=== PATIENT | male | born 1935 | race Hispanic/Latino ===

== ENCOUNTER 2016-12-30 14:10 | Observation (INO) | payer MEDICARE, BC ==
[2016-12-30] MEDS ORDERED: Nitroglycerin 2% Ointment Foilpak UD TOP STA (14:36)
[2016-12-30 14:38] LABS: BASO # 0.02 K/mm3 (0.0-2.0); BASO % 0.3 % (0.0-3.0); EOS # 0.1 (0.0-0.7); EOS % 1.8 % (1.5-5.0); GRAN # 5.16 (1.4-6.5); GRAN % 66.5 % (50.0-68.0); HEMATOCRIT 37.3 % (42.0-52.0); LYMPH % 26.1 % (22.0-35.0); MEAN CELL VOLUME 85.7 fl (80.0-105.0); MEAN CORPUSCULAR HEMOGLOBIN 29.4 pg (25.0-35.0); MEAN CORPUSCULAR HGB CONC 34.3 g/dl (31.0-37.0); MEAN PLATELET VOLUME 10.5 fl (7.0-11.0); MONO # 0.4 (0.1-0.6); MONO % 5.3 % (1.0-6.0); RED CELL DISTRIBUTION WIDTH 14.1 % (11.5-14.5); WHITE BLOOD COUNT 7.8 10^3/ul (4.5-11.0)
--- NOTE | 2016-12-30 14:41 | ED PDOC ---
Arrival/HPI - General Chief Complaint: Chest Pain Time Seen by Provider: 12/30/16 14:23 Historian: Patient, Spouse, Family - History of Present Illness Narrative History of Present Illness (Text): 12/30/16 14:35 A 81 year old male, whose past medical history includes diabetes, hypertension, 10 cardiac stents (last one placed 1 year ago) on Aspirin and Plavix and ulcer on Protonix, presents to the emergency department complaining of intermittent chest pains since yesterday. Patient describes the pain as a stabbing sensation. Patient notes mild acid reflux but denies any fever, nausea, vomiting , abdominal pain, urinary symptoms, hematochezia, shortness of breath, cough or any other complaints. PMD: Non-[facility] provider, located in [place] Professor Of Economics: Dr. Larson 12/30/16 17:10 Time/Duration: Other (Yesterday) Symptom Course: Unchanged, Intermittent Quality: Other Context: Home Past Medical History - Provider Review Nursing Documentation Reviewed: Yes - Infectious Disease Hx of Infectious Diseases: None - Cardiac Hx Hypertension: Yes Other/Comment: cardiac stent x10 - Endocrine/Metabolic Hx Diabetes Mellitus Type 2: Yes - Psychiatric Hx Substance Use: No - Anesthesia Hx Anesthesia: No Family/Social History - Physician Review Nursing Documentation Reviewed: Yes Family/Social History: No Known Family HX Smoking Status: Unknown If Ever Smoked Hx Alcohol Use: No Hx Substance Use: No Allergies/Home Meds Allergies/Adverse Reactions: Allergies acetaminophen [From Vicodin] Allergy (Verified 12/30/16 21:01) RASH hydrocodone [From Vicodin] Allergy (Verified 12/30/16 21:01) RASH Penicillins Allergy (Verified 12/30/16 21:01) RASH prochlorperazine [From Compazine] Allergy (Verified 12/30/16 21:01) RASH clarithromycin [From Biaxin] Adverse Reaction (Verified 12/30/16 21:01) VOMITING levofloxacin [From Levaquin] Adverse Reaction (Verified 12/30/16 21:01) PAIN lidocaine Adverse Reaction (Verified 12/30/16 21:01) SHORTNESS OF BREATH Home Medications: Home Meds Medication Instructions Recorded Confirmed Clopidogrel [Plavix] 75 mg PO DAILY 12/30/16 12/30/16 Glimepiride [amaRYL] 2 mg PO DAILY 12/30/16 12/30/16 Losartan [Cozaar] 100 mg PO DAILY 12/30/16 12/30/16 Pantoprazole Sodium [Protonix] 40 mg PO DAILY 12/30/16 12/30/16 Ranolazine [Ranexa] 250 mg PO BID 12/30/16 12/30/16 Rosuvastatin Calcium [Crestor] 5 mg PO DAILY 12/30/16 12/30/16 SITagliptin [Januvia] 50 mg PO DAILY 12/30/16 12/30/16 amLODIPine [Norvasc] 1 tab PO ONCE 12/30/16 12/30/16 Review of Systems - Physician Review All systems were reviewed & negative as marked: Yes - Review of Systems Constitutional: absent: Fevers Respiratory: absent: SOB, Cough Cardiovascular: Chest Pain Gastrointestinal: absent: Abdominal Pain, Nausea, Vomiting, Hematochezia Genitourinary Male: absent: Dysuria, Frequency, Hematuria Physical Exam Vital Signs Reviewed: Yes Vital Signs Temp Pulse Resp BP Pulse Ox 12/30/16 18:51 50 L 18 152/74 H 96 12/30/16 17:38 98.5 F 49 L 18 143/73 96 12/30/16 16:34 48 L 18 159/65 H 98 12/30/16 15:06 98.5 F 62 17 140/64 98 12/30/16 14:17 98.4 F 54 L 18 141/93 H 98 Temperature: Afebrile Blood Pressure: Hypertensive Pulse: Bradycardic Respiratory Rate: Normal Appearance: Positive for: Well-Appearing, Non-Toxic, Comfortable Pain Distress: None Mental Status: Positive for: Alert and Oriented X 3 - Systems Exam Head: Present: Atraumatic, Normocephalic Pupils: Present: PERRL Extroacular Muscles: Present: EOMI Conjunctiva: Present: Normal Mouth: Present: Moist Mucous Membranes Neck: Present: Normal Range of Motion Respiratory/Chest: Present: Clear to Auscultation, Good Air Exchange. No: Respiratory Distress, Accessory Muscle Use Cardiovascular: Present: Regular Rate and Rhythm, Normal S1, S2. No: Murmurs Abdomen: Present: Normal Bowel Sounds. No: Tenderness, Distention, Peritoneal Signs Back: Present: Normal Inspection Upper Extremity: Present: Normal Inspection. No: Cyanosis, Edema Lower Extremity: Present: Normal Inspection. No: Edema Neurological: Present: GCS=15, CN II-XII Intact, Speech Normal Skin: Present: Warm, Dry, Normal Color. No: Rashes Psychiatric: Present: Alert, Oriented x 3, Normal Insight, Normal Concentration Medical Decision Making ED Course and Treatment: 12/30/16 14:35 Impression: A 81 year old male with chest pain. Patient denies any other complaints. Plan: -- Chest xray -- EKG -- Labs -- Urinalysis -- Aspirin and Nitroglycerin -- Reassess and disposition Progress Notes: EKG shows sinus bradycardia at 59 BPM with LAD, no ST changes, nonspecific t- wave inversions in AVL, normal intervals, QRS 91ms and DC <200ms. Interpreted by me. 12/30/16 16:55 Have been attempting to page Dr. Larson, without success. Report Date : 12/30/2016 16:57:21 Procedure: Chest xray Dictator : Sergio Low MD IMPRESSION: Prominent cardiac silhouette. No definite acute infiltrate or pleural effusion bilaterally. 12/30/16 17:[address] Larson, states he will evaluate patient at bedside. 12/31/16 21:26 advises admission. 12/31/16 21:27 - Lab Interpretations Lab Results: 12/30/16 14:25 12/30/16 14:50 Lab Results 12/30/16 16:35: Urine Color Light yellow, Urine Appearance Clear, Urine pH 6.0, Ur Specific [place] 1.015, Urine Protein Negative, Urine Glucose (UA) Negative, Urine Ketones Negative, Urine Blood Negative, Urine Nitrate Negative, Urine Bilirubin Negative, Urine Urobilinogen 0.2, Ur Leukocyte Esterase Negative 12/30/16 14:50: Sodium 141, Potassium 4.3, Chloride 101, Carbon Dioxide 28, Anion Gap 16, BUN 29 H, Creatinine 1.6 H, Est GFR ( Amer) 51, Est GFR ( Non-Af Amer) 42, Random Glucose 172 H, Calcium 9.4, Magnesium 1.9, Total Bilirubin 0.5, AST 24, ALT 24, Alkaline Phosphatase 75, Lactate Dehydrogenase 365, Total Creatine Kinase 42, Troponin I < 0.01, Total Protein 6.9, Albumin 4.2 , Globulin 2.7, Albumin/Globulin Ratio 1.6 12/30/16 14:25: PT 11.2, INR 1.04, APTT 25.3, D-Dimer, Quantitative 0.46 12/30/16 14:25: WBC 7.8, RBC 4.35, Hgb 12.8 L, Hct 37.3 L, MCV 85.7, MCH 29.4, MCHC 34.3, RDW 14.1, Plt Count 241, MPV 10.5, Gran % 66.5, Lymph % (Auto) 26.1, Simpson % (Auto) 5.3, Eos % (Auto) 1.8, Baso % (Auto) 0.3, Gran # 5.16, Lymph # 2.0 , Simpson # 0.4, Eos # 0.1, Baso # 0.02 I have reviewed the lab results: Yes - RAD Interpretation Radiology Orders: 12/30/16 14:23 CHEST TWO VIEWS (PA/LAT) [RAD] Stat - Medication Orders Current Medication Orders: Acetylcysteine (Acetylcysteine 20%) 3 ml PO BID [facility] Stop: 01/02/17 10:01 Last Admin: 12/31/16 17:28 Dose: 3 ml Aspirin (Aspirin Chewable) 81 mg PO DAILY [facility] Last Admin: 12/31/16 09:47 Dose: Atorvastatin Calcium (Lipitor) 40 mg PO DIN [facility] Last Admin: 12/31/16 17:27 Dose: 40 mg Glimepiride (Amaryl) 2 mg PO DAILY [facility] Last Admin: 12/31/16 09:59 Dose: 2 mg Hydralazine HCl (Apresoline) 10 mg PO TID [facility] Last Admin: 12/31/16 17:27 Dose: 10 mg MAR Pulse and Blood Pressure Document 12/31/16 17:27 KMS (Rec: 12/31/16 17:28 [email or web address] Pulse Pulse Rate (60-90) 68 Blood Pressure Blood Pressure (100/60-150/90) 131/65 Iron Sucrose 200 mg/ Sodium (Chloride) 110 mls @ 110 mls/hr IVPB DAILY [facility] Stop: 01/02/17 10:59 Last Admin: 12/31/16 15:09 Dose: 110 mls/hr eMAR Start Stop Document 12/31/16 15:09 KMS (Rec: 12/31/16 15:10 [email or web address] Intravenous Solution Start Date 12/31/16 Start Time 15:10 End Date 12/31/16 End time 16:10 Total Infusion Time 60 Sodium Chloride (Sodium Chloride 0.9%) 1,000 mls @ 75 mls/hr IV .[id number] [facility] Stop: 01/01/17 23:59 Last Admin: 12/31/16 15:07 Dose: 75 mls/hr eMAR Start Stop Document 12/31/16 15:07 KMS (Rec: 12/31/16 15:08 KMS [id number]) Intravenous Solution Start Date 12/31/16 Start Time 15:07 Isosorbide Mononitrate (Imdur) 60 mg PO DAILY [facility] Last Admin: 12/31/16 10:06 Dose: Not Given Non-Admin Reason: BP Parameters Not Met Comments: bp 116/41, HR 44 Xiqap-3-Ptlr Ethyl Esters (Lovaza) 1 gm PO BID [facility] Last Admin: 12/31/16 17:27 Dose: 1 gm Pantoprazole Sodium (Protonix Ec Tab) 40 mg PO DAILY [facility] Last Admin: 12/31/16 09:48 Dose: Prasugrel (Effient) 10 mg PO DAILY [facility] Sitagliptin Phosphate (Januvia) 50 mg PO DAILY [facility] Last Admin: 12/31/16 09:59 Dose: 50 mg Discontinued Medications Amlodipine Besylate (Norvasc) 10 mg PO ONCE ONE Stop: 12/30/16 18:01 Last Admin: 12/30/16 18:55 Dose: Aspirin (Aspirin Chewable) 243 mg PO STAT STA Stop: 12/30/16 14:37 Last Admin: 12/30/16 15:00 Dose: 243 mg Enoxaparin Sodium (Lovenox) 100 mg SC STAT STA PRN Reason: Protocol Stop: 12/30/16 18:06 Last Admin: 12/30/16 18:54 Dose: 100 mg Subcutaneous Administrations Document 12/30/16 18:54 IT (Rec: 12/30/16 18:54 IT [id number]) Injection Site MAR Injection Site Left Abdomen Charges for Administration # of Subcutaneous Administrations 1 Sodium Chloride (Sodium Chloride 0.9%) 1,000 mls @ 75 mls/hr IV .[id number] [facility] Stop: 12/31/16 23:59 Last Admin: 12/30/16 18:52 Dose: 75 mls/hr eMAR Start Stop Document 10/02/17 18:52 IT (Rec: 12/30/16 18:54 IT [id number]) Intravenous Solution Start Date 12/30/16 Start Time 18:54 Sodium Bicarbonate 100 meq/ (Sodium Chloride) 1,100 mls @ 129 mls/hr IV .[id number] [facility] Stop: 12/31/16 15:00 Last Admin: 12/31/16 09:30 Dose: 129 mls/hr eMAR Start Stop Document 12/31/16 09:30 KMS (Rec: 12/31/16 09:31 KMS [id number]) Intravenous Solution Start Date 12/31/16 Start Time 09:31 End Date 12/31/16 End time 15:00 Total Infusion Time 329 Nitroglycerin (Nitro-Bid 2% Oint) 1 ea TOP STAT STA Stop: 12/30/16 14:37 Last Admin: 12/30/16 14:59 Dose: 1 ea Nitroglycerin (Nitro-Bid 2% Oint) 1 ea TOP Q6H [facility] Last Admin: 12/31/16 08:24 Dose: Non-Formulary Medication (Ranolazine [Ranexa]) 250 mg PO BID [facility] Last Admin: 12/30/16 18:55 Dose: Pneumococcal Polyvalent Vaccine (Pneumovax 23 Vaccine) 0.5 ml IM .ONCE ONE Stop: 12/30/16 22:38 Last Admin: 12/31/16 01:21 Dose: - Scribe Statement The provider has reviewed the documentation as recorded by the Jessica Meade Provider Scribe Attestation: All medical record entries made by the Scribjolie were at my direction and personally dictated by me. I have reviewed the chart and agree that the record accurately reflects my personal performance of the history, physical exam, medical decision making, and the department course for this patient. I have also personally directed, reviewed, and agree with the discharge instructions and disposition. Disposition/Present on Arrival - Present on Arrival Any Indicators Present on Arrival: No History of DVT/PE: No History of Uncontrolled Diabetes: No Urinary Catheter: No History of Decub. Ulcer: No History Surgical Site Infection Following: None - Disposition Have Diagnosis and Disposition been Completed?: Yes Diagnosis: Chest pain Disposition: HOSPITALIZED Disposition Time: 17:15 Patient Plan: Observation, Telemetry Patient Problems: Current Active Problems Problem Status Onset Chest pain Acute Condition: IMPROVED
[2016-12-30 15:07] LABS: D DIMER 0.46 mg/L FEU (0-0.50); INR 1.04 (0.93-1.08); PARTIAL THROMBOPLASTIN TIME 25.3 Seconds (23.7-30.8)
[2016-12-30 15:14] LABS: ALB/GLOB RATIO 1.6 (1.1-1.8); ALKALINE PHOSPHATASE 75 U/L (38-126); ALT/SGPT 24 U/L (7-56); AST/SGOT 24 U/L (17-59); BILIRUBIN,TOTAL 0.5 mg/dL (0.2-1.3); BLOOD UREA NITROGEN 29 mg/dL (7-21); CALCIUM 9.4 mg/dL (8.4-10.5); CARBON DIOXIDE 28 mmol/L (21-33); CHLORIDE 101 mmol/L (98-107); GFR AFRICAN-AMERICAN 51; GLUCOSE,RANDOM 172 mg/dL (70-110); MAGNESIUM 1.9 mg/dL (1.7-2.2); POTASSIUM 4.3 mmol/L (3.6-5.0); SODIUM 141 mmol/L (132-148); TOTAL PROTEIN 6.9 g/dL (5.8-8.3)
[2016-12-30 15:37] LABS: TROPONIN I < 0.01 ng/mL
[2016-12-30 16:43] LABS: URINE BILIRUBIN NEGATIVE (NEGATIVE); URINE BLOOD NEGATIVE (NEGATIVE); URINE GLUCOSE (UA) NEGATIVE (NEGATIVE); URINE KETONE NEGATIVE (NEGATIVE); URINE LEUKOCYTE ESTERASE NEGATIVE Leu/uL (NEGATIVE); URINE PROTEIN NEGATIVE mg/dL (<30 mg/dL); URINE UROBILINOGEN 0.2 E.U./dL (<1 E.U./dL)
[2016-12-30 16:45] LABS: URINE APPEARANCE CLEAR (CLEAR); URINE COLOR LIGHT YELLOW (YELLOW)
--- NOTE | 2016-12-30 16:58 | RAD ---
HISTORY: chest pain COMPARISON: Chest radiographs 12/30/2016. TECHNIQUE: Chest PA and lateral FINDINGS: LUNGS: No active pulmonary disease. PLEURA: No significant pleural effusion identified. No pneumothorax apparent. CARDIOVASCULAR: Prominent cardiac silhouette. No pulmonary vascular derangement identified. OSSEOUS STRUCTURES: No significant abnormalities. VISUALIZED UPPER ABDOMEN: Normal. OTHER FINDINGS: None. IMPRESSION: Prominent cardiac silhouette. No definite acute infiltrate or pleural effusion bilaterally.
[2016-12-30] MEDS ORDERED: RANOLAZINE PO SCH (18:00)
[2016-12-30] MEDS ORDERED: Enoxaparin 60 mg Syringe SC STA (18:02)
[2016-12-30] MEDS ORDERED: Enoxaparin 100 mg Syringe SC STA (18:05)
[2016-12-30] MEDS ORDERED: Sodium Chloride 0.9% 1,000 ML IV SCH (18:15)
--- NOTE | 2016-12-30 18:59 | CP.PCM.HP ---
<Citlaly Olmedo - Last Filed: 12/30/16 20:02> History of Present Illness - History of Present Illness History of Present Illness: Patient is an 81 year old with past medical hx of HTN, CAD s/p 10 stents, DM presents to the ED for chest pain that started over the weekend. Patient states that he was home sitting down when the pain started. Chest pain is located in the epigastric region, constant in nature, non radiating. Reports that he has had this pain before in the past. Denies any associated symptoms. Denies headaches, dizziness, nausea, vomiting, diaphoresis, palpitations, dyspnea, abominal pain, urinary symptoms, changes in bowel habits. ED course: ASA 234mg, Nitro, Lovenox 100mg SC, Norvasc 10mg x 1 PMD: Dr Smith Golf Instructor: Dr Larson Allergies: PCNs, acetaminophen, prochlorperazine, hydrocodone, lidocaine, biaxin , levaquin, z pack Medical Hx: CAD s/p 10 stents (last two stents were placed June 2015), DM (20 years), HTN, Hyperlipidemia Medications: ASA, Plavix, Glimperide, Crestor, Ranexa, Protonix, Losartan, Januvia, amlodipine Surgical Hx: denies Social Hx: denies smoking, alcohol, drug use Family Hx: Heart disease - Mother/siblings Present on Admission - Present on Admission Any Indicators Present on Admission: No Review of Systems - Review of Systems All systems: reviewed and no additional remarkable complaints except - Constitutional Constitutional: absent: Chills, Fever, Headache - EENT Eyes: absent: Blurred Vision, Change in Vision Ears: absent: Dizziness - Cardiovascular Cardiovascular: Chest Pain. absent: Dyspnea, Lightheadedness, Orthopnea, Palpitations, Syncope - Respiratory Respiratory: absent: Cough, Wheezing - Gastrointestinal Gastrointestinal: absent: Abdominal Pain, Constipation, Diarrhea, Nausea, Vomiting - Genitourinary Genitourinary: absent: Difficulty Urinating, Dysuria - Musculoskeletal Musculoskeletal: absent: Neck Pain, Numbness, Radiating Pain into Limb, Tingling - Neurological Neurological: absent: Dizziness, Numbness, Headaches, Tingling, Weakness - Psychiatric Psychiatric: absent: Anxiety, Depression Past Patient History - Infectious Disease Hx of Infectious Diseases: None - Past Social History Smoking Status: Unknown If Ever Smoked - CARDIAC Hx Hypertension: Yes Other/Comment: cardiac stent x10 - ENDOCRINE/METABOLIC Hx Diabetes Mellitus Type 2: Yes - PSYCHIATRIC Hx Substance Use: No - ANESTHESIA Hx Anesthesia: No Meds Allergies/Adverse Reactions: Allergies Allergy/AdvReac Type Severity Reaction Status Date / Time acetaminophen [From Vicodin] Allergy RASH Verified 12/30/16 21:01 hydrocodone [From Vicodin] Allergy RASH Verified 12/30/16 21:01 Penicillins Allergy RASH Verified 12/30/16 21:01 prochlorperazine Allergy RASH Verified 12/30/16 21:01 [From Compazine] clarithromycin [From Biaxin] AdvReac VOMITING Verified 12/30/16 21:01 levofloxacin [From Levaquin] AdvReac PAIN Verified 12/30/16 21:01 lidocaine AdvReac SHORTNESS Verified 12/30/16 21:01 OF BREATH Physical Exam - Constitutional Appears: Well, No Acute Distress - Head Exam Head Exam: ATRAUMATIC, NORMAL INSPECTION - Eye Exam Eye Exam: EOMI, Normal appearance Pupil Exam: NORMAL ACCOMODATION - ENT Exam ENT Exam: Mucous Membranes Moist - Neck Exam Neck exam: Positive for: Full Rom - Respiratory Exam Respiratory Exam: Clear to Auscultation Bilateral, NORMAL BREATHING PATTERN. absent: Rales, Rhonchi, Wheezes - Cardiovascular Exam Cardiovascular Exam: REGULAR RHYTHM, +S1, +S2 Additional comments: Epigastric pain non-reproducible - GI/Abdominal Exam GI & Abdominal Exam: Distended, Normal Bowel Sounds, Soft. absent: Firm, Guarding, Rigid - Rectal Exam Rectal Exam: Deferred - Extremities Exam Extremities exam: Positive for: normal inspection, pedal pulses present. Negative for: calf tenderness, tenderness - Back Exam Back exam: NORMAL INSPECTION - Neurological Exam Neurological exam: Alert, Normal Gait, Oriented x3 - Psychiatric Exam Psychiatric exam: Normal Affect, Normal Mood - Skin Skin Exam: Dry, Normal Color, Warm Results - Vital Signs Recent Vital Signs: Last Vital Signs Temp 98.5 F 12/30/16 17:38 Pulse 50 L 12/30/16 18:51 Resp 18 12/30/16 18:51 BP 152/74 H 12/30/16 18:51 Pulse Ox 96 12/30/16 18:51 - Labs Result Diagrams: 12/30/16 14:25 12/30/16 14:50 Assessment & Plan - Assessment and Plan (Free Text) Assessment: 81 year old male with past medical hx of HTN, CAD s/p 10 stents, DM, hyperlipidemia presents with chest pain that started over the weekend. EKG in the ED showing sinus bradycardia with HR 59. Trop negative x 1. Plan: 1. Chest Pain R/O ACS -Afebrile -Admit for observation; monitor on telemetry -STAT labs: Lipid profile, TSH, Total/Free T4, Hga1c -Trend troponins Q4H x 3 -EKG in the morning -Echo ordered -Diet: Moderate Varb consistent (Low fat/low cholesterol) -NPO after midnight for cardiac catherization -ASA 81mg, continue Plavix, Ranexa BID -Atorvastatin 40mg daily, weight based lovenox -Activity: OOB to chair -Cardiology on consult, f/u recommendations 2. Hypertension -Will hold cozaar at this time -Hydralazine 10mg PO TID -Continue to monitor 3. Acute Kidney Injury -BUN/Cr on admission -Baseline kidney function unknown -Gentle hydration with NS @ 75 cc/hr -Avoid nephrotoxic agents -Continue to monitor 4. Diabetes Mellitus -Will start Januvia and Glimeperide -Accuchecks ACHS -F/U HgA1C GI/DVT ppx -Protonix 40mg daily -Weight based lovenox Plan d/w Dr Birmingham <Cristo Birmingham - Last Filed: 01/01/17 21:54> Results - Vital Signs Recent Vital Signs: Last Vital Signs Temp 98.4 F 01/01/17 06:00 Pulse 72 01/01/17 09:29 Resp 19 01/01/17 06:00 BP 156/80 H 01/01/17 09:29 Pulse Ox 97 01/01/17 06:00 - Labs Result Diagrams: 01/01/17 06:15 01/01/17 06:15 Labs: Laboratory Results - last 24 hr 01/01/17 01/01/17 01/01/17 06:15 06:15 07:26 WBC 6.4 RBC 4.06 Hgb 11.7 L Hct 34.9 L MCV 86.0 MCH 28.8 MCHC 33.5 RDW 14.0 Plt Count 168 MPV 9.7 Sodium 143 Potassium 3.8 Chloride 102 Carbon Dioxide 30 Anion Gap 15 BUN 28 H Creatinine 1.7 H Est GFR ( Amer) 47 Est GFR (Non-Af Amer) 39 POC Glucose (mg/dL) 158 H Random Glucose 146 H Calcium 8.7 Total Bilirubin 0.8 AST 25 ALT 36 Alkaline Phosphatase 74 Total Protein 6.5 Albumin 3.8 Globulin 2.6 Albumin/Globulin Ratio 1.5 Attending/Attestation - Attestation I have personally seen and examined this patient.: Yes I have fully participated in the care of the patient.: Yes I have reviewed all pertinent clinical information: Yes
[2016-12-30] MEDS ORDERED: Enoxaparin 120 mg Syringe SC SCH (19:45)
[2016-12-30] MEDS: Nitroglycerin 2% Ointment Foilpak UD TOP SCH (20:40)
[2016-12-30 21:02] LABS: CHOLESTEROL 126 mg/dL (130-200)
[2016-12-30 21:18] LABS: TROPONIN I < 0.01 ng/mL
[2016-12-30 21:23] LABS: FREE T4 1.07 ng/dL (0.78-2.19); T4 7.8 ug/dL (5.5-11.0)
[2016-12-30 21:36] LABS: THYROID STIMULATING HORMONE 1.78 mIU/mL (0.46-4.68)
[2016-12-30] MEDS ORDERED: Insulin Reg-MEDIUM-Coverage SC SCH (22:00)
[2016-12-30] MEDS ORDERED: Pneumococcal 23-Valent Vaccine IM ONE (22:37)
[2016-12-30 22:38] VITALS: BMI 34.7
--- NOTE | 2016-12-30 23:24 | CON ---
DATE OF SERVICE: 12/30/2016 SERVICE: Cardiology. REASON FOR CONSULTATION: Follow up unstable angina, acute coronary syndrome. BRIEF CLINICAL HISTORY: This is an 81-year-old male with past medical history significant for diabetes, coronary artery disease, status post multiple stents, PTCA by Dr. Hager at [facility]. Last was done 2 to 3 years ago. Since then, the patient refused stress test, refused cardiac catheterization, came to the emergency room with complaint of left-sided chest pain radiating to the right breast across the chest with a tightness feeling. The patient was accompanied by the , daughter, and the [id number], claims that this chest pain is relatively new. The patient used to get better with taking Ranexa but at this time, the patient's pain does not subside, but still the patient wants to go home. PAST MEDICAL HISTORY: Significant for diabetes, hypertension, hyperlipidemia, obesity. SOCIAL HISTORY: Denies any history of alcohol abuse. Denies any history of tobacco abuse. CURRENT MEDICATIONS: The patient is taking Protonix, Losartan, Amaryl, Plavix, Crestor, Ranexa, Norvasc, and Januvia. ALLERGIES: ACETAMINOPHEN, HYDROCODONE, PENICILLIN, CHLORPROMAZINE, CLARITHROMYCIN, LEVAQUIN, LIDOCAINE. REVIEW OF SYSTEMS: As per HPI. PHYSICAL EXAMINATION: VITAL SIGNS: Temperature afebrile, heart rate 48, blood pressure 159/65. HEENT: PERRLA. Extraocular muscles intact. NECK: Supple. No carotid bruits or thyromegaly. CHEST: Clear to auscultation. HEART: S1 and S2 regular. ABDOMEN: Soft. EXTREMITIES: Clubbing and cyanosis negative. DIAGNOSTIC STUDIES: EKG shows normal sinus, 0.[address] depression in the anterior lead. LABORATORY DATA: Blood workup as follows: WBC 7.8, hemoglobin 12.2, hematocrit 37.3, platelet count 241. Chemistry shows sodium 141, potassium 4.3, chloride 101, carbon dioxide 28, anion gap of 16, BUN 29, creatinine of 1.6. IMPRESSION: Unstable angina, diabetes, hypertension, hyperlipidemia, obesity, body mass index 35 kg per m2, history of multiple stents. The patient refused stress test, cardiac catheterization in the past couple of years. RECOMMENDATIONS: Give the Lovenox. Due to his unstable angina, possible cardiac catheterization tomorrow. Further recommendation after the cardiac catheterization. We will follow with you. Thank you Dr. Guerrero for providing me the opportunity in taking care of the patient, Reji Lopez. Teri Larson MD
[2016-12-30] MEDS: Omega-3-Acid Ethyl Esters 1 GM Cap PO SCH (23:39)
[2016-12-30 23:41] LABS: IRON 39 ug/dL (45-180)
--- NOTE | 2016-12-31 02:37 | HP ---
HISTORY OF PRESENT ILLNESS: The patient is an 81-year-old obese male presented to the emergency room complaining of chest pain for the last 1 week according to the patient's and the daughter but the patient has been keeping it as a secret, but since yesterday, the patient's chest pain has increased, described at moderate scale, 5/10, localized to the precordium, across the chest to the precordial area without any radiation to neck, arm and jaw. The patient denies shortness of breath. Denies diaphoresis. Denies nausea, vomiting, denies dizziness. The patient came in as a walk-in ambulatory to the emergency room. REVIEW OF SYSTEMS: Thirteen system review was done, pertinent positive negative dictated above. CODE STATUS: Full code. LIVING WILL/ADVANCE DIRECTIVE: None. ALLERGIES: HYDROCODONE, PENICILLIN, PROCHLORPERAZINE, COMPAZINE, BIAXIN, LEVAQUIN, LIDOCAINE. HOME MEDICATIONS: Protonix 40 mg daily, Cozaar 100 mg daily, Amaryl 2 mg daily, Plavix 75 mg daily, Crestor 5 mg daily, Ranexa 250 mg twice a day, Norvasc 10 mg daily, Januvia 50 mg daily. SOCIAL HISTORY: According to the [facility], no substance abuse. No alcohol, no smoking. OCCUPATIONAL HISTORY: The patient is a transportation maintenance worker, actively working. FAMILY HISTORY: Not available. PAST MEDICAL HISTORY: The patient has been followed by Dr. Larson for his history of coronary artery disease, coronary angioplasties, and history of his angioplasty and stent placement x10, history of obesity, history of hypertension, history of non-insulin requiring diabetes mellitus, history of dyslipidemia, history of angina. PHYSICAL EXAMINATION: GENERAL: The patient was seen in telemetry bed 62, bed 2. The patient is lying in the bed with the patient's and daughter are at bedside. VITAL SIGNS: T-max 98.5, heart rate 62-49-48-50, blood pressure 140/64, 159/65, 152/74, 149/94, respiration 18-20, O2 sat 96-98%. HEAD: Normocephalic, atraumatic. EENT: Shows pink conjunctivae. Anicteric sclerae. No oropharyngeal lesion. NECK: No neck rigidity. CHEST: Kyphosis. LUNGS: Shows questionable rhonchi at the bases posteriorly. CARDIOVASCULAR: Shows S1, S2, regular rhythm. Questionable soft systolic murmur left sternal border, left second intercostal space. ABDOMEN: Protuberant. Positive bowel sounds. No guarding. No rigidity. No rebound tenderness. GENITALIA: Male. RECTAL: Deferred. EXTREMITIES: Shows no pitting edema, no calf tenderness. No Judith's signs. Positive varicose veins of the lower extremity noted. No clubbing, no sinuses noted. VASCULAR: Palpate pulses. MUSCULOSKELETAL: Shows elevated body mass index of 35. Weight is 235, height is 5 feet 9 inches. NEUROLOGIC: No gross deficit. The patient is able to move upper lower extremity without assistance. Gait examination is not tested. PSYCHIATRIC: Negative for anxiety, depression. Negative for suicidal homicidal ideation. Negative for auditory and visual hallucinations. DIAGNOSTICS: WBC 7.8, hemoglobin/hematocrit 12.8, 37.3, platelet 241. PT/PTT 11.2/25.3, D-dimer 0.46. Sodium 141, potassium 4.3, chloride 101, CO2 28, anion gap 16, BUN 29, creatinine 1.6, GFR 51, glucose 172, calcium 9.4, magnesium 1.9. LFTs are normal. Troponin 0.01. Urine pH 6.0, specific gravity 1.015, rest of the urine is negative. Chest x-ray was reviewed, shows questionable cardiomegaly noted. No old x-ray available. The patient's EKG was done in the emergency room which we are unable to view, because of [employer] issues. The patient's EKG was reviewed by the ER physician which shows sinus bradycardia at 60 beats with left axis deviation, nonspecific T-wave inversion in aVL. TREATMENT IN THE EMERGENCY ROOM: The patient was seen in the emergency room by the ER physician. The patient was given Lovenox 100 mg subcu, nitro paste 1 inch, Norvasc 10 mg, Ranexa 250 and aspirin was given. The patient was advised to be admitted. As mentioned, the patient has been followed up by Dr. Larson from cardiology for his coronary artery disease status. The patient was seen in the ER by Dr. Larson as per ER physician's request. The patient was advised to be admitted. IMPRESSION: 1. Chest pain. 2. Questionable unstable angina versus acute coronary syndrome. 3. Uncontrolled hypertension. 4. Sinus bradycardia. 5. Left axis deviation. 6. Mild normocytic anemia. 7. Acute kidney injury with underlying chronic kidney disease stage III/IV. 8. Hyperglycemia. 9. History of type 2 [id number] diabetes mellitus. 10. Cardiomegaly. 11. History of multiple angioplasty and coronary artery disease. 12. History of gastroesophageal reflux. 13. History of questionable gastric ulcer as per the daughter. 14. History of dyslipidemia. 15. History of angina. PLAN: Plan at this time, the patient will be placed on telemetry observation as per the ER physician. The patient has been ordered thyroid panel, lipid panel, hemoglobin A1c, magnesium, phosphorus, serial cardiac enzymes has been ordered. ESR has been ordered. Cardiology consultation ordered. The patient is started on Mucomyst 600 mg twice a day, first dose stat for anticipation for cardiac catheterization tomorrow. The patient is resumed on Amaryl 2 mg daily as per the patient's family's request. The patient and the patient's family refused to have a sliding scale insulin coverage. The patient will be started on Amaryl 2 mg daily the patient will be started on hydralazine 10 mg three times a day, aspirin 81, Januvia 50 mg daily, Lipitor 40 mg daily, the patient received Lovenox 100 mg subcu stat in the ER. The patient is started on nitro paste 1 inch q. 6. The patient was given Norvasc 10 mg in the ER, Plavix 75 daily, Protonix 40 mg daily. The patient is started on IV fluid 0.9 normal saline at 75 ml an hour. Repeat EKG ordered. Echo with Doppler ordered. Heart healthy diet ordered. Fingerstick blood sugar a.c. ordered. The patient has been ordered n.p.o. except meds past midnight for cardiac catheterization as per cardiology. At present, the patient is seen in room 262, bed 2. The patient and the patient's family was explained about the need for further diagnostic therapeutic interventions was explained to the patient and the patient's family which they acknowledged understand. The patient is agreeable to proceed with cardiac catheterization as recommended by cardiology. At present, the patient is seen and evaluated on 262 bed 2 in telemetry. The patient at present, further management will be dependent upon the patient's clinical condition, hemodynamic status and as per the patient response to therapeutic intervention as per the patient's diagnostic test results and as per recommendation by cardiology. Dictated and electronically signed, not read. Cristo Birmingham MD MTDGucci
[2016-12-31] MEDS: Nitroglycerin 2% Ointment Foilpak UD TOP SCH ×2 (04:33→08:24)
[2016-12-31 05:48] LABS: BASO # 0.02 K/mm3 (0.0-2.0); BASO % 0.3 % (0.0-3.0); EOS # 0.2 (0.0-0.7); GRAN # 4.72 (1.4-6.5); HEMATOCRIT 34.1 % (42.0-52.0); LYMPH # 2.1 (1.2-3.4); MEAN CELL VOLUME 86.3 fl (80.0-105.0); MEAN CORPUSCULAR HEMOGLOBIN 29.1 pg (25.0-35.0); MEAN CORPUSCULAR HGB CONC 33.7 g/dl (31.0-37.0); MEAN PLATELET VOLUME 9.8 fl (7.0-11.0); MONO # 0.4 (0.1-0.6); MONO % 5.7 % (1.0-6.0); RED CELL DISTRIBUTION WIDTH 14.1 % (11.5-14.5); WHITE BLOOD COUNT 7.4 10^3/ul (4.5-11.0)
[2016-12-31] MEDS: Acetylcysteine 20% Inhal Soln (4ml) PO SCH ×4 (06:22→17:28)
[2016-12-31] MEDS: Pantoprazole 40 mg EC Tab PO SCH ×2 (06:28→09:48)
[2016-12-31] MEDS ORDERED: Lidocaine 2% Inj (20ml) ONE (06:28)
[2016-12-31] MEDS ORDERED: Iodixanol 320 MG/ML 200 ML BOTTLE IV ONE (06:29)
[2016-12-31] MEDS ORDERED: Phenylephrine 10 mg/ml Inj ONE (06:29)
[2016-12-31] MEDS ORDERED: Iodixanol 320 MG/ML 100 ML BOTTLE IV ONE (06:29)
[2016-12-31] MEDS ORDERED: Nitroglycerin 50mg in D5W 50 MG/250 ML BOTTLE IV ONE (06:30)
[2016-12-31] MEDS ORDERED: Iohexol 350mgl/ml 50 ML ONE (06:32)
[2016-12-31] MEDS ORDERED: Midazolam 2 MG/2 ML VIAL ONE ×2 (06:57→08:06)
[2016-12-31 07:16] LABS: ALB/GLOB RATIO 1.4 (1.1-1.8); ALKALINE PHOSPHATASE 78 U/L (38-126); ALT/SGPT 27 U/L (7-56); AST/SGOT 24 U/L (17-59); BILIRUBIN,DIRECT 0.3 mg/dL (0.0-0.4); BILIRUBIN,TOTAL 0.3 mg/dL (0.2-1.3); BLOOD UREA NITROGEN 29 mg/dL (7-21); CALCIUM 9.1 mg/dL (8.4-10.5); CARBON DIOXIDE 29 mmol/L (21-33); CHLORIDE 104 mmol/L (98-107); GFR AFRICAN-AMERICAN 47; GLUCOSE,RANDOM 136 mg/dL (70-110); MAGNESIUM 1.8 mg/dL (1.7-2.2); PHOSPHOROUS 3.5 mg/dL (2.5-4.5); POTASSIUM 4.2 mmol/L (3.6-5.0); SODIUM 142 mmol/L (132-148); TOTAL PROTEIN 6.5 g/dL (5.8-8.3)
[2016-12-31] MEDS ORDERED: Bupivacaine 0.5% Inj(30mL) ONE (07:20)
[2016-12-31] MEDS ORDERED: Sodium Bicarbonate (8.4%) 50 Meq Syringe ONE (07:26)
[2016-12-31 07:27] LABS: TROPONIN I < 0.01 ng/mL
[2016-12-31] MEDS ORDERED: Eptifibatide 20 mg/10mL Inj IVP ONE (08:25)
--- NOTE | 2016-12-31 09:32 | CP.PCM.PN ---
<DUKERAMÓN - Last Filed: 12/31/16 10:54> Subjective - Date & Time of Evaluation Date of Evaluation: 12/31/16 Time of Evaluation: 09:13 - Subjective Subjective: Medicine Progress Note for Dr. Birmingham: Pt seen and examined at bedside. Pt status post cardiac catherization. Pt tolerated procedure well. Pt denies CP, SOB, n/v/d, chills, fever, abdominal pain, fatigue, dizziness, dysuria, or OWENS. Objective - Vital Signs/Intake and Output Vital Signs (last 24 hours): Temp Pulse Resp BP Pulse Ox 98.7 F 48 L 20 155/70 H 96 12/31/16 05:03 12/31/16 05:03 12/31/16 05:03 12/31/16 05:03 12/31/16 05:03 Intake and Output: 12/31/16 12/31/16 06:59 18:59 Intake Total 900 Output Total 650 Balance 250 - Medications Medications: Current Medications Acetylcysteine (Acetylcysteine 20%) 3 ml PO BID [facility] Stop: 01/02/17 10:01 Last Admin: 12/31/16 06:23 Dose: Not Given Aspirin (Aspirin Chewable) 81 mg PO DAILY [facility] Last Admin: 12/31/16 06:28 Dose: 81 mg Atorvastatin Calcium (Lipitor) 40 mg PO DIN [facility] Last Admin: 12/30/16 20:40 Dose: 40 mg Glimepiride (Amaryl) 2 mg PO DAILY [facility] Hydralazine HCl (Apresoline) 10 mg PO TID [facility] Iron Sucrose 200 mg/ Sodium (Chloride) 110 mls @ 110 mls/hr IVPB DAILY [facility] Stop: 01/02/17 10:59 Sodium Chloride (Sodium Chloride 0.9%) 1,000 mls @ 75 mls/hr IV .[id number] [facility] Stop: 01/01/17 23:59 Sodium Bicarbonate 100 meq/ (Sodium Chloride) 1,100 mls @ 129 mls/hr IV .[id number] [facility] Stop: 12/31/16 15:00 [id number] Ethyl Esters (Lovaza) 1 gm PO BID [facility] Last Admin: 12/30/16 23:39 Dose: 1 gm Pantoprazole Sodium (Protonix Ec Tab) 40 mg PO DAILY [facility] Last Admin: 12/31/16 06:28 Dose: 40 mg Prasugrel (Effient) 10 mg PO DAILY [facility] Sitagliptin Phosphate (Januvia) 50 mg PO DAILY [facility] - Labs Labs: 12/31/16 05:10 12/31/16 05:10 PT 11.2 Seconds (9.9-11.8) 12/30/16 14:25 INR 1.04 (0.93-1.08) 12/30/16 14:25 APTT 25.3 Seconds (23.7-30.8) 12/30/16 14:25 - Constitutional Appears: No Acute Distress - Eye Exam Eye Exam: EOMI, PERRL - ENT Exam ENT Exam: Mucous Membranes Moist - Neck Exam Neck Exam: Full ROM. absent: Lymphadenopathy, Tenderness, Thyromegaly - Respiratory Exam Respiratory Exam: Clear to Ausculation Bilateral. absent: Rales, Rhonchi, Wheezes - Cardiovascular Exam Cardiovascular Exam: RRR, +S1, +S2. absent: Gallop, Rubs, Murmur - GI/Abdominal Exam GI & Abdominal Exam: Soft, Normal Bowel Sounds. absent: Distended, Guarding, Tenderness, Mass, Rebound - Extremities Exam Extremities Exam: Normal Inspection Additional comments: LUE catherization incision site clean, dry and intact - Neurological Exam Neurological Exam: Alert, Awake, Oriented x3 - Psychiatric Exam Psychiatric exam: Normal Affect, Normal Mood - Skin Skin Exam: Dry, Intact, Normal Color, Warm Assessment and Plan - Assessment and Plan (Free Text) Assessment: 81 year old male with past medical hx of HTN, CAD s/p 10 stents, DM, hyperlipidemia presents with chest pain that started over the weekend. EKG in the ED showing sinus bradycardia with HR 59. Admitted evaluation and treatment for chest pain r/o ACS. Plan: 1. Chest Pain R/O ACS - Admit for observation; monitor on telemetry - Lipid profile, TSH, Total/Free T4 WNL - Troponin negative x3 - F/u Hga1c, Echo - Cardiology Consulted Cardiac catherization with angioplasty today F/u recommendations - ASA 81mg, continue Plavix, Ranexa BID, Imdur, Effient, mucormyst - Atorvastatin 40mg daily, weight based lovenox - Activity: OOB to chair - Moderate Carb consistent Diet, NS@75 2. Hypertension - Will hold cozaar at this time - Hydralazine 10mg PO TID - Continue to monitor 3. Acute Kidney Injury - BUN 29/Cr 1.7 - NS@75 - Avoid nephrotoxic agents - Continue to monitor 4. Diabetes Mellitus - C/w Januvia and Glimeperide - Accuchecks ACHS - F/U HgA1C 5. Iron Deficiency Anemia - Iron 39, TIBC 281, Sat 14%; F/u ferritin - Iron Sucrose 200 mg IVPB daily x3 - F/u HOBT - F/u anemia workup - F/u last colonscopy results, pt due for upper endoscopy GI/DVT ppx - Protonix 40mg daily - Weight based lovenox Pt seen and discussed in detail with Dr. Birmingham. Moris Cheung, PGY1 <Cristo Birmingham U - Last Filed: 01/01/17 21:54> Objective - Vital Signs/Intake and Output Vital Signs (last 24 hours): Temp Pulse Resp BP Pulse Ox 98.4 F 72 19 156/80 H 97 01/01/17 06:00 01/01/17 09:29 01/01/17 06:00 01/01/17 09:29 01/01/17 06:00 Intake and Output: 01/01/17 01/02/17 18:59 06:59 Intake Total 250 Balance 250 - Labs Labs: 01/01/17 06:15 01/01/17 06:15 PT 11.2 Seconds (9.9-11.8) 12/30/16 14:25 INR 1.04 (0.93-1.08) 12/30/16 14:25 APTT 25.3 Seconds (23.7-30.8) 12/30/16 14:25 Attending/Attestation - Attestation I have personally seen and examined this patient.: Yes I have fully participated in the care of the patient.: Yes I have reviewed all pertinent clinical information, including history, physical exam and plan: Yes
--- NOTE | 2016-12-31 09:44 | CARD ---
APPROVED REPORT EKG Measurement Heart [id number] <Conclusion> Sinus bradycardia Otherwise normal ECG
[2016-12-31] MEDS: Omega-3-Acid Ethyl Esters 1 GM Cap PO SCH ×2 (09:59→17:27)
--- NOTE | 2016-12-31 11:46 | PN ---
DATE: REASON FOR THE CONSULTATION: Followup unstable angina, acute coronary syndrome. SUBJECTIVE: The patient underwent PTCA of circumflex. Postprocedure, the patient has remained stable. No chest pain, shortness of breath, or palpitation. PHYSICAL EXAMINATION GENERAL: Lying flat in the bed. VITAL SIGNS: As follows: Temperature afebrile, heart rate 40, blood pressure 155/70. HEENT: PERRLA. Extraocular muscles intact. NECK: Supple. No carotid bruit or thyromegaly. CHEST: Clear to auscultation. HEART: S1 and S2 regular. ABDOMEN: Soft. EXTREMITIES: Clubbing and cyanosis negative. LABORATORY DATA: Blood workup as follows: WBC 7.9, hemoglobin 11.5, hematocrit 34.1, platelet count 183. Chemistry shows sodium 140, potassium 4.2, chloride 104, carbon dioxide 29, anion gap of 30, BUN 29, creatinine 1.7. Troponin is negative. ASSESSMENT AND PLAN: Acute coronary syndrome, unstable angina, history of multiple stents, status post catheterization today this morning that shows left main ostial 20% to 30%; actually there are 2 separate ostial openings for left main and circumflex. Left anterior descending artery patent stent, proximal to mid widely patent with circumflex proximal in-stent stenosis 80% and mid circumflex 70% in-stent stenosis noted. Right coronary artery totally occluded, preserved left ventricular with ejection fraction 60% to 65%, successful percutaneous transluminal coronary angioplasty of in-stent stenosis of proximal with drug-eluting stent and mid circumflex plain balloon angioplasty was done. Also, the patient was checked for aggregation platelets inhibition by Plavix, found to be 260, which is consistent with resistance to Plavix, so medication was changed to Effient 60 mg p.o. was given in catheterization lab and then 10 mg from tomorrow. Also, since the patient has elevated BUN and creatinine, we will continue bicarb at 129 mL an hour for 6 hours followed by normal saline 75 mL. We will keep overnight for hydration. Further recommendations depending on hospital course. We will periodically check BUN and creatinine. The patient was on Ranexa at home, we will change to Imdur here, which is nonformulary. Thank you Dr. Guerrero for providing us the opportunity in taking care of the patient, Reji Lopez. Teri Larson MD
--- NOTE | 2016-12-31 11:54 | PN ---
DATE: 12/31/2016 LOCATION: The patient is now seen in room #274, bed #2. SUBJECTIVE: The patient's and daughter are at bedside. The patient underwent angioplasty this morning and tolerated procedure well. The patient is lying in the bed comfortable. PHYSICAL EXAMINATION: VITAL SIGNS: T-max is 98.7, telemetry shows sinus rhythm and sinus bradycardia, blood pressure is 105/42, 159/65, 166/70, and 155/70, respirations 20, and O2 saturations 96%. HEAD: Normocephalic, atraumatic. EENT: Shows pinkish pale conjunctivae. Anicteric sclerae. No oropharyngeal lesion. NECK: No neck rigidity. CHEST: Kyphosis. LUNGS: Shows questionable rhonchi at the bases. CARDIOVASCULAR: Shows S1, S2, regular rhythm. ABDOMEN: Protuberant, obese. Positive bowel sounds. GENITALIA: Male. RECTAL: Deferred. EXTREMITIES: Left upper extremity catheter noted. The patient had the cardiac catheterization through the left arm. Lower extremity shows no pitting edema. No calf tenderness. No Homans signs. NEUROLOGIC: The patient is alert, awake, and oriented x3. Body mass index is elevated. LABORATORY DATA: Lab done from 12/31/2016, WBC 7.4, hemoglobin and hematocrit 11.5 and 34.1, and platelets 183. ESR is 15. P2Y12 reactor unit is 260. Sodium 142, potassium 4.2, chloride 104, CO2 29, anion gap 13, BUN 29, creatinine 1.7, GFR 47, glucose 136, calcium 9.1, phosphorus 3.5, magnesium 1.8, iron 39, saturation 14. LFTs are normal. Troponin all three sets are negative. Triglyceride 225. Thyroid gland was negative. Urinalysis negative. The patient underwent cardiac catheterization. IMPRESSION AND PLAN: 1. Chest pain. 2. Questionable unstable angina versus acute coronary syndrome. 3. Status post angioplasty and stent placement of the left circumflex. 4. Plavix resistant. 5. Bradycardia. 6. Hypertension. 7. Mild normocytic anemia. 8. Chronic kidney disease stage III. 9. Iron-deficiency. 10. Hypertriglyceridemia. 11. Obesity with elevated body mass index of 35. 12. Sinus bradycardia. 13. Questionable left axis deviation. 1. Chest pain. 2. Questionable unstable angina versus acute coronary syndrome. 3. Uncontrolled hypertension. 4. Sinus bradycardia. 5. Left axis deviation. 6. Mild normocytic anemia. 7. Acute kidney injury with underlying chronic kidney disease stage III/IV. 8. Hyperglycemia. 9. History of type 2 pgs-vpobaxg-hpaaxlpqw diabetes mellitus. 10. Cardiomegaly. 11. History of multiple angioplasty and coronary artery disease. 12. History of gastroesophageal reflux. 13. History of questionable gastric ulcer as per the daughter. 14. History of dyslipidemia. 15. History of angina. PLAN: At this time, the patient has been explained about the details of his medical condition. Tests were all explained to the patient, the patient's , and the daughter who are present at the bedside. The patient will be kept overnight post angioplasty. As per cardiology recommendations, the patient has been ordered to repeat labs. CURRENT MEDICATIONS: IV half normal saline with bicarbonate at 129 mL an hour, Mucomyst 20% 3 mL twice a day for 6 doses, Amaryl 2 mg daily, hydralazine 10 mg t.i.d., aspirin 81 mg daily, Effient 10 mg daily, Imdur 60 mg daily, Venofer 200 mg daily three doses, Januvia 50 mg daily, Lipitor 40 mg daily, Lovaza 1 g twice a day, the patient's nitro paste is changed to Imdur by cardiology, and Protonix 40 mg daily. The patient has been ordered repeat EKG. Echo with Doppler ordered, not done. Heart-healthy diet. Bed rest ordered. VANCE stockings and SCDs ordered. The patient and the patient's and the family all were explained about the patient's diagnoses, test results, need for close outpatient followup with his primary care physician in [place]. The patient and the family has been advised need for gastroenterology evaluation and hematology evaluation for investigation into iron-deficiency anemia. All of the above acknowledged and understood. All questions and concerns were answered. Dictated and electronically signed, not read. Cristo Birmingham MD MTDGucci
[2016-12-31 13:25] LABS: FOLATE > 20.0 ng/mL
[2016-12-31] MEDS ORDERED: Bacitracin 500 Units/gm Oint Foilpak UD ONE (13:31)
[2016-12-31] MEDS: Sodium Chloride 0.9% 1,000 ML IV SCH (15:07)
[2016-12-31 16:09] LABS: BASO # 0.03 K/mm3 (0.0-2.0); BASO % 0.4 % (0.0-3.0); EOS # 0.1 (0.0-0.7); EOS % 1.3 % (1.5-5.0); GRAN # 5.45 (1.4-6.5); GRAN % 70.2 % (50.0-68.0); HEMATOCRIT 37.6 % (42.0-52.0); LYMPH # 1.7 (1.2-3.4); LYMPH % 21.4 % (22.0-35.0); MEAN CELL VOLUME 85.8 fl (80.0-105.0); MEAN CORPUSCULAR HEMOGLOBIN 29.2 pg (25.0-35.0); MEAN PLATELET VOLUME 9.5 fl (7.0-11.0); MONO # 0.5 (0.1-0.6); MONO % 6.7 % (1.0-6.0); RED CELL DISTRIBUTION WIDTH 13.9 % (11.5-14.5); WHITE BLOOD COUNT 7.8 10^3/ul (4.5-11.0)
[2016-12-31 16:16] LABS: CALCIUM 8.9 mg/dL (8.4-10.5); POTASSIUM 3.8 mmol/L (3.6-5.0)
[2017-01-01] MEDS: Sodium Chloride 0.9% 1,000 ML IV SCH (05:00)
[2017-01-01 05:16] VITALS: RESP 19
[2017-01-01 06:37] LABS: HEMATOCRIT 34.9 % (42.0-52.0); MEAN CORPUSCULAR HEMOGLOBIN 28.8 pg (25.0-35.0); MEAN CORPUSCULAR HGB CONC 33.5 g/dl (31.0-37.0); MEAN PLATELET VOLUME 9.7 fl (7.0-11.0); WHITE BLOOD COUNT 6.4 10^3/ul (4.5-11.0)
[2017-01-01 06:43] LABS: ALB/GLOB RATIO 1.5 (1.1-1.8); BILIRUBIN,TOTAL 0.8 mg/dL (0.2-1.3); CALCIUM 8.7 mg/dL (8.4-10.5); POTASSIUM 3.8 mmol/L (3.6-5.0); TOTAL PROTEIN 6.5 g/dL (5.8-8.3)
[2017-01-01 06:46] VITALS: TEMP 98.4; O2SAT 97
[2017-01-01] MEDS ORDERED: Potassium Chloride 20 mEq ER Tab PO ONE (08:47)
[2017-01-01] MEDS: Acetylcysteine 20% Inhal Soln (4ml) PO SCH (09:28)
[2017-01-01] MEDS: Omega-3-Acid Ethyl Esters 1 GM Cap PO SCH (09:29)
[2017-01-01 09:30] VITALS: BP 156/80; PULSE 72
[2017-01-01] MEDS: Pantoprazole 40 mg EC Tab PO SCH (09:30)
--- NOTE | 2017-01-01 09:34 | PN ---
REASON FOR CONSULTATION: Followup unstable angina, acute coronary syndrome, status post PTCA of circumflex with DILSHAD. SUBJECTIVE: The patient has chest pain, seen in echo room having echo, feels a lot better, no further episode of chest pain since stenting was done. OBJECTIVE: GENERAL: Lying flat on bed, not in apparent distress. VITAL SIGNS: Temperature afebrile, heart rate 60, blood pressure 142/60. HEENT: PERRLA, intact. NECK: Supple. No carotid bruit or thyromegaly. CHEST: Clear to auscultation. HEART: S1 and S2 regular. ABDOMEN: Soft. EXTREMITIES: Clubbing and cyanosis negative. LABORATORY DATA: Blood workup as follows: WBC 6.4, hemoglobin 11.3, hematocrit 34.9 and platelet count 168. Chemistries show sodium 143, potassium 3.8, chloride 102, carbon dioxide 50, anion gap of 15, BUN 28, creatinine 1.7. Total protein 6.5, albumin 3.2, albumin and globulin ration 1.5. TSH 1.78. Triglyceride 255, cholesterol 126, LDL 48, HDL 33. IMPRESSION: Acute coronary syndrome, status post multiple stents in the past, status post cardiac catheterization and angioplasty of the circumflex yesterday. Echo is being done, preliminarily shows preserved LV function, no aortic stenosis noted, echo is being done now. Obesity, diabetes, hypertension, hyperlipidemia, chronic renal insufficiency with baseline creatinine 1.6 to 1.7 with a creatinine clearance around 40 mL. Also, the patient is resistant to Plavix. RECOMMENDATIONS: Resume previous medications. Continue Effient, continue baby aspirin, continue atorvastatin. We will discontinue telemetry. DISCHARGE PLANNING: Emphasis made to the patient that the patient needs to follow up blood workup in a week to assess the renal function to monitor closely for contrast-induced nephropathy, note total 65 mL of contrast used and after that, the patient was hydrated with bicarb for 6 hours at 129 mL an hour followed by normal saline at 75 mL an hour and baseline creatinine today back to 1.7. Also, the patient while here on Imdur because the patient nonformulary, so the patient will resume back on Ranexa, aspirin, Plavix, but the patient will be discharged on aspirin, Plavix is discontinued because of resistance, continue Effient, continue amlodipine, continue losartan and follow up blood workup in a week. Prescription for Effient was left in the chart, discussed with the resident taking care. We will discontinue telemetry. We will review echo when it is done. We will discontinue telemetry for the patient to discharge planning. Thank you Dr. Birmingham for providing the opportunity in taking care of the patient. The patient be followed up with his PMD at [place]. Teri Larson MD
--- NOTE | 2017-01-01 10:05 | CARD ---
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 INDICATION The indication(s) include : unstable angina . CASE TECHNIQUE The patient was brought urgently to the Cardiac Catheterization Laboratory in a fasting state and was prepped and draped in a sterile manner. The left wrist was infiltrated with 2% Lidocaine subcutaneous anesthesia. A 6 Fr Glidesheath (Radial) sheath was inserted into the left radial artery without difficulty. Coronary angiography was performed using coronary diagnostic catheters. The left coronary system was accessed and visualized with a Diagnostic ,5 Fr JL 4 catheter. The right coronary system was accessed and visualized with a Diagnostic ,6 Fr AL 1 catheter. The left ventricle was accessed and visualized with a 5 Fr Pigtail 145 (Angled) catheter. Left ventricular/Aortic Valve gradient assessed on pullback. Left ventriculogram was performed in [place] projection. The patient tolerated the procedure well and there were no complications associated with the procedure. Vessel Analysis The patient's coronary anatomy is co-dominant. The left main coronary artery is a large size vessel with diffuse calcification noted throughout this vessel and without significant stenosis. There is a 20% stenosis in the ostial segment. The left main bifurcates to the left anterior descending and circumflex. The left anterior descending artery is a large size vessel with diffuse calcification noted throughout this vessel and without significant stenosis. Multiple patent stents from proximal to mid segment noted The first diagonal branch is a medium size vessel with diffuse calcification noted throughout this vessel and without significant stenosis. The second diagonal branch is a medium size vessel with diffuse calcification noted throughout this vessel and without significant stenosis. The circumflex artery is a large size vessel with diffuse calcification noted throughout this vessel and with significant stenosis. Multiple stents noted There is a 80% stenosis in the proximal segment Instent restenosis. Mid 70% instent restenosis The first obtuse marginal branch is a medium size vessel with diffuse calcification noted throughout this vessel and with significant stenosis. There is a 70% stenosis in the ostial segment. The left posterior descending artery is a large size vessel with diffuse calcification noted throughout this vessel and without significant stenosis. The right coronary artery is a medium size vessel with diffuse calcification noted throughout this vessel and with significant stenosis. There is a 100% stenosis in the proximal segment. Left Ventricle The left ventricle is borderline in size with normal contractility. There was no cardiomyopathy. The left ventricular ejection fraction is estimated to be 55-60%. The left ventricular end diastolic pressure is 20 mmHg. There was no gradient across the aortic valve upon pullback. PCI Technique Lesion Anticoagulation was achieved with Heparin. Percutaneous coronary intervention was performed on the proximal circumflex artery segment. The lesion stenosis prior to intervention was 80% with LARRY 2 flow. A 6 Fr XB 3.5 Guide Catheter was used to engage the ostium. A 0.014 x 182 cm Luge Interventional Guidewire was used to cross the lesion. BALLOON DILATION A Balloon catheter 3.0 x 10 mm Scoring Balloon PTCA was inserted and inflated up to 10.00atm for 40seconds. STENT DEPLOYMENT A drug-eluting stent 3.5 x 12 mm Resolute DILSHAD was inserted and inflated up to 14.00atm for 20seconds. Final angiography reveals 0 % stenosis with LARRY 3 flow. PCI Technique Lesion 2 Percutaneous Coronary Intervention was performed on the mid circumflex artery segment. The lesion stenosis prior to intervention was 70% with LARRY 2 flow. A 6 Fr XB 3.5 Guide Catheter was used to engage the ostium. A 0.014 x 182 cm Luge Interventional Guidewire was used to cross the lesion. BALLOON DILATION A Balloon catheter 3.0 x 10 mm Scoring Balloon PTCA was inserted and inflated up to 10.00atm for 10seconds. POST STENT DEPLOYMENT BALLOON DILATION A Balloon catheter 3.5/12 stent balloon was inserted and inflated up to 10.00atm for 10seconds. Final angiography reveals 0 % stenosis with LARRY 3 flow. 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 Preserved LV Fx. Ef-55%, EDP-20 mmof Hg. CKD, T2 DM, HTN, Obesity Successful PTCA with DILSHAD of Proximal CX and POBA of MId CX after PTCA with scorring Balloon Only 65 cc contrast used Resistance to Plavix ( PRU 260) Recommendations Cardiac Rehabilitation Referral Aggressive Medical TherapyCardiac Risk Reduction Program Weight Loss Reduction Program ASA 81 and Effient 10 mg po daily for one year. Overnight hydration and monitor Renal Fx for 24 hours and F/u BMP in one week for JOIV. CC; : Angel
--- NOTE | 2017-01-01 10:46 | CARD ---
APPROVED REPORT EKG Measurement Heart [id number] <Conclusion> Marked sinus bradycardia Abnormal ECG
--- NOTE | 2017-01-01 11:00 | CARD ---
APPROVED REPORT EKG Measurement Heart [id number] <Conclusion> Marked sinus bradycardia Abnormal ECG
--- NOTE | 2017-01-01 15:02 | DS ---
PROGRESS NOTE AND DISCHARGE SUMMARY HISTORY OF PRESENT ILLNESS: The patient was cleared by cardiology for discharge. The patient stayed without any adverse event overnight. The patient's left radial site for the cardiac catheterization angioplasty was found to be clean and intact without bleeding or swelling with positive radial and brachial pulses noted. The patient underwent echocardiogram today. Telemetry was discontinued. The patient was cleared. PHYSICAL EXAMINATION: VITAL SIGNS: T-max overnight is 98.7; pulse 75, 60, 43, 56, 78, 68; respirations 19; O2 saturations 97%; blood pressure 150/80, 167/81, 142/67, 131/65. The patient's physical examination is as per the medical insurance clerk note. The patient's echocardiogram result is pending. DIAGNOSTIC DATA: CBC showed WBC of 6.4, hemoglobin and hematocrit 11.7 and 35, platelets 168, granulocytes 70% segs. Sodium 143; potassium 3.8; chloride 102; CO2 of 30; anion gap 15; BUN 28; creatinine 1.7; GFR 47; glucose 158, 146, 232, 136; calcium 8.7. LFTs are normal. Troponin all sets are negative. FINAL IMPRESSION, PLAN AND DISCHARGE DIAGNOSES: 1. Coronary artery disease with unstable angina versus acute coronary syndrome. 2. Status post angioplasty and drug-eluting stent placement for left circumflex artery. 3. Hypertension. 4. Bradycardia. 5. Normocytic, iron-deficiency anemia, etiology undetermined. 6. Plavix resistance. 7. Chronic kidney disease, stage III. 8. Wwo-wmwwpai-vdgrwagmw diabetes mellitus with hyperglycemia and hemoglobin A1c of 8.2. 9. Iron deficiency. 10. Hypertriglyceridemia, hypercholesterolemia. 11. Obesity with elevated body mass index of 35. 12. Sinus bradycardia. 13. ST changes. 1. Chest pain. 2. Questionable unstable angina versus acute coronary syndrome. 3. Status post angioplasty and stent placement of the left circumflex. 4. Plavix resistant. 5. Bradycardia. 6. Hypertension. 7. Mild normocytic anemia. 8. Chronic kidney disease stage III. 9. Iron-deficiency. 10. Hypertriglyceridemia. 11. Obesity with elevated body mass index of 35. 12. Sinus bradycardia. 13. Questionable left axis deviation. 1. Chest pain. 2. Questionable unstable angina versus acute coronary syndrome. 3. Uncontrolled hypertension. 4. Sinus bradycardia. 5. Left axis deviation. 6. Mild normocytic anemia. 7. Acute kidney injury with underlying chronic kidney disease stage III/IV. 8. Hyperglycemia. 9. History of type 2 wwz-vacfkit-jnjokkbyu diabetes mellitus. 10. Cardiomegaly. 11. History of multiple angioplasty and coronary artery disease. 12. History of gastroesophageal reflux. 13. History of questionable gastric ulcer as per the daughter. 14. History of dyslipidemia. 15. History of angina. The patient was cleared for discharge by cardiology. The patient's echocardiogram result is pending. DISCHARGE MEDICATIONS: Norvasc 10 mg daily, aspirin 81 mg daily, Amaryl 2 mg daily, but the patient was advised to increase oral hypoglycemic because of elevated hemoglobin A1c. The patient is on Cozaar 100 mg daily, Lovaza 1 g twice a day, Protonix 40 mg daily, Effient 10 mg which was substitute for Plavix secondary to Plavix resistance, Ranexa 250 twice a day, Crestor 5 mg daily and Januvia 50 mg daily. The patient is to be discharged home after cleared by cardiology. The patient is to follow up with PMD in [place]. The patient and the patient's family were advised outpatient hematology evaluation and gastroenterology evaluation for iron-deficiency anemia. The patient is to follow up with cardiology within 1 week. The patient's discharge medications as per above dictated ambulatory orders and new script plus copy of the diet was given to the patient upon discharge. The patient is to release all records from this hospitalization to all his physician. The patient's condition, diagnoses, treatment plan, followup plan and all details explained to the patient and the patient's and the daughter during this hospitalization, which they acknowledged to understand. All questions concerned answered to their satisfaction. Time spent in the entire discharge process was more than 45 minutes. Dictated and electronically signed, not read. Cristo Birmingham MD [facility]
--- NOTE | 2017-01-01 18:27 | CARD ---
APPROVED REPORT EXAM: Two-dimensional and M-mode echocardiogram with Doppler and color Doppler. INDICATION Chest Pain 2D DIMENSIONS Left Atrium (2D)4.1 (1.6-4.0cm)IVSd1.4 (0.7-1.1cm) LVDd5.4 (3.9-5.9cm)PWd1.6 (0.7-1.1cm) LVDs4.0 (2.5-4.0cm)FS (%) 26.0 % LVEF (%)50.6 (>50%) M-Mode DIMENSIONS Aortic Root2.60 (2.2-3.7cm)Aortic Cusp Exc.1.00 (1.5-2.0cm) Aortic Valve AoV Peak Wgjiqkew831.0cm/Yissel Peak GR.14mmHg Mitral Valve MV E Wdkixvet13.4cm/sMV A Ufegnqul81.5cm/sE/A ratio0.9 TDI E/Lateral E'0.0E/Medial E'0.0 Tricuspid Valve TR Peak Czsryfaf368co/sRAP [id number] Peak Gr.21mmHg [id number] LEFT VENTRICLE The left ventricle is normal size. There is mild concentric left ventricular hypertrophy. The left ventricular function is normal.EF-55% There is mild hypokinesis in the basal inferolateral wall. Transmitral Doppler flow pattern is Grade III-reversible restrictive diastolic dysfunction. No left ventricle thrombus noted on this study. There is no ventricular septal defect visualized. There is no left ventricular aneurysm. There is no mass noted in the left ventricle. RIGHT VENTRICLE The right ventricle is normal size. There is normal right ventricular wall thickness. The right ventricular systolic function is normal. ATRIA The left atrium is mildly dilated. The right atrium size is normal. The interatrial septum is intact with no evidence for an atrial septal defect. AORTIC VALVE The aortic valve is calcified but opens well. No aortic regurgitation is present. Aortic Sclerosis VS mild There is no aortic valvular vegetation. MITRAL VALVE The mitral valve is thickened but opens well. Mitral regurgitation is trace to mild. There is no mitral valve stenosis. There is no evidence of mitral valve prolapse. TRICUSPID VALVE The tricuspid valve leaflets are thickened , but open well. There is trace tricuspid regurgitation.RVSP-31 mm of Hg There is no tricuspid valve stenosis. There is no tricuspid valve prolapse or vegetation. PULMONIC VALVE The pulmonic valve is mildly thickened. GREAT VESSELS The aortic root is normal in size. The ascending aorta is normal in size. The pulmonary artery is normal. The IVC is normal in size and collapses >50% with inspiration. PERICARDIAL EFFUSION There is no pleural effusion. There is no pericardial effusion. <Conclusion> The left ventricle is normal size. There is mild concentric left ventricular hypertrophy. The left ventricular function is normal.EF-55% Aortic Sclerosis VS mild Mitral regurgitation is trace to mild. There is trace tricuspid regurgitation.RVSP-31 mm of Hg The IVC is normal in size and collapses >50% with inspiration. There is no pericardial effusion. S/p PTCA of CX
== END 2017-01-01 11:41 | disposition home or self-care (01) ==
LOC: ED 14:10 → ERH 17:53 → 2RNO 19:05 → 2RSO 12-31 09:08
PROVIDERS: ADMIT Internal Medicine; ATTEND Internal Medicine
DX: I25.110 Atherosclerotic heart disease of native coronary artery with unstable angina pectoris (principal); T82.855A Stenosis of coronary artery stent, initial encounter; I25.82 Chronic total occlusion of coronary artery; N17.9 Acute kidney failure, unspecified; I12.9 Hypertensive chronic kidney disease with stage 1 through stage 4 chronic kidney disease, or unspecified chronic kidney disease; N18.4 Chronic kidney disease, stage 4 (severe); E11.22 Type 2 diabetes mellitus with diabetic chronic kidney disease; E11.65 Type 2 diabetes mellitus with hyperglycemia; E66.9 Obesity, unspecified; E78.00 Pure hypercholesterolemia, unspecified; D50.9 Iron deficiency anemia, unspecified; E78.1 Pure hyperglyceridemia; E78.5 Hyperlipidemia, unspecified; Y83.1 Surgical operation with implant of artificial internal device as the cause of abnormal reaction of the patient, or of later complication, without mention of misadventure at the time of the procedure; Z68.35 Body mass index [BMI] 35.0-35.9, adult; I24.9 Acute ischemic heart disease, unspecified; I51.7 Cardiomegaly; K21.9 Gastro-esophageal reflux disease without esophagitis; Z79.02 Long term (current) use of antithrombotics/antiplatelets; Z79.899 Other long term (current) drug therapy; R00.1 Bradycardia, unspecified
CPT/HCPCS: 36415; 71020; 80053; 80061; 81003; 82139; 82248; 82550; 82607; 82668; 82728; 82746; 82948; 83036; 83540; 83550; 83615; 83735; 84100; 84439; 84443; 84484; 85025; 85027; 85175; 85378; 85610; 85651; 85730; 93005; 93306; 93458; 96365; 96372; 99152; 99153; 99285; C1725; C1769; C1874; C1887; C9600; G0378; J1327; J1644; J1650; J1756; J1940; J2250; J2405; J3010; J7030; J7040; Q9967